=== PATIENT | male | born 1980 ===

== ENCOUNTER 2018-05-29 12:24 | Day surgery (SDC) | payer OTHER ==
[2018-05-29 14:00] VITALS: BMI 41.1
[2018-05-29] MEDS ORDERED: Iohexol 350mgl/ml 50 ML ONE (14:42)
[2018-05-29] MEDS ORDERED: Lidocaine PF 2% (5 ml) Inj (For Cardiac Arrhy) ONE (14:42)
[2018-05-29] MEDS ORDERED: Iodixanol 320 MG/ML 100 ML BOTTLE IV ONE (14:42)
[2018-05-29] MEDS ORDERED: Nitroglycerin 50mg in D5W 50 MG/250 ML BOTTLE IV ONE (14:43)
[2018-05-29] MEDS ORDERED: Iodixanol 320 MG/ML 200 ML BOTTLE IV ONE (14:43)
[2018-05-29] MEDS ORDERED: Verapamil 0 ML ONE (14:44)
[2018-05-29] MEDS ORDERED: Midazolam 2 MG/2 ML VIAL ONE (15:15)
[2018-05-29] MEDS ORDERED: Labetalol 5mg/ml (4ml) ONE (16:18)
[2018-05-29] MEDS ORDERED: Sodium Chloride 0.45% 1,000 ML IV SCH (16:30)
--- NOTE | 2018-05-29 17:53 | CARD ---
APPROVED REPORT Date of service: 05/29/2018 EKG Measurement Heart [id number] <Conclusion> Normal sinus rhythm Normal ECG
[2018-05-29 23:40] VITALS: TEMP 98.1
[2018-05-29 23:41] VITALS: BP 160/90; PULSE 80; RESP 20
--- NOTE | 2018-06-04 10:28 | CARDCATH ---
PROCEDURE DATE: 05/29/2018 PROCEDURES: 1. Coronary angiogram. 2. Left anterior descending coronary angioplasty and drug-eluting stent placement. CLINICAL INDICATIONS: 1. Chest pain. 2. Abnormal stress test. 3. Coronary artery disease. 4. Diabetes. 5. Hypertension. 6. Hyperlipidemia. REFERRING PHYSICIAN: Hernan Davalos MD. PERFORMING PHYSICIAN: Tomi Rowe MD. DESCRIPTION OF PROCEDURE: After informed consent, the patient was prepped and draped in the usual sterile fashion. The patient has chronic kidney disease. The patient was adequately premedicated for renal protection. A 6-[place] XBLAD 3.5 guide catheter engaged into the left main coronary artery. The patient was given a loading dose of aspirin, Plavix, and IV heparin. ACT was maintained at about 250. Initial angiogram has confirmed 95% mid LAD stenosis and 80% distal LAD disease. The patient had a DANIELLA-2 flow distally initially. The LAD was threaded with run-through coronary wire. Both mid and distal LAD lesions were predilated using 2.25 x 12 compliant balloon. The mid LAD is stented with 2.75 x 16 Resolute [place] drug eluting stent. Distal LAD stented with 2.5 x 12 Resolute [place] drug eluting stent. Both the stents are overlapped. The overlap area post dilated using noncompliant balloon. Excellent final angiographic results with brisk DANIELLA-3 flow noted. Since the patient has a chronic kidney disease, left circumflex intervention was not performed. After 2 to 4 weeks, the patient will be brought back for elective intervention of the left circumflex. CONCLUSION: Successful coronary intervention with drug-eluting stent placement of mid and distal LAD. The patient will be transferred back to [facility] for further monitoring. Tomi Rowe MD
== END 2018-05-30 00:20 | disposition short-term general hospital (02) ==
LOC: CATH 12:24 → 2RSO 17:00 → CATH 05-30 00:20
PROVIDERS: ATTEND Internal Medicine Cardiovascular Disease
DX: I25.10 Atherosclerotic heart disease of native coronary artery without angina pectoris (principal); I12.9 Hypertensive chronic kidney disease with stage 1 through stage 4 chronic kidney disease, or unspecified chronic kidney disease; E11.22 Type 2 diabetes mellitus with diabetic chronic kidney disease; N18.9 Chronic kidney disease, unspecified; E78.5 Hyperlipidemia, unspecified; R94.39 Abnormal result of other cardiovascular function study; E66.9 Obesity, unspecified; Z68.41 Body mass index [BMI] 40.0-44.9, adult
CPT/HCPCS: 93005; 99152; 99153; C1725; C1760; C1769 ×2; C1874 ×2; C1887; C1894; C2629; C9600; J1644 ×2; J2001; J2250; J3010; J7030; Q9966; Q9967